=== PATIENT | female | born 1970 | race Asian ===

== ENCOUNTER 2019-04-28 05:23 | Emergency (ER) | payer OTHER ==
[~2019-04-28] VITALS: Ht 152.4 cm; Wt 47.7 kg
[~2019-04-28 05:23] MED LIST: ONDA4TAB6 PO
[2019-04-28 06:34] LABS: CLARITY,URINE CLEAR (Clear); COLOR,URINE STRAW (Yellow); GLUCOSE, URINE NEGATIVE (Neg); KETONES,URINE >=80 mg/dl (Neg); LEUKOCYTE ESTERASE ,URINE NEGATIVE (Neg); NITRITES, URINE NEGATIVE (Neg); OCCULT BLOOD,URINE TRACE-INTACT (Neg); PH,URINE 7.5 (4.8-8.0); PROTEIN,URINE NEGATIVE (Neg)
[2019-04-28 06:35] LABS: URINE HCG NEGATIVE (NEG)
[2019-04-28] MEDS ORDERED: ondansetron/PF 4mg/2ml inj IV ONE ×2 (06:35→07:00)
[2019-04-28 06:37] LABS: BASOPHILS % (AUTO) 0.3 % (0-1); EOSINOPHILS % (AUTO) 0.1 % (0-6); HEMOGLOBIN 15.5 g/dl (12.0-16.0); LYMPHOCYTES # (AUTO) 0.8 X10'3 (1.1-4.8); LYMPHOCYTES % (AUTO) 17.3 % (21-51); MEAN CORPUSCULAR HEMOGLOBIN 31.1 PG (27.0-31.0); MEAN CORPUSCULAR HGB CONC 34.5 g/dL (33.0-36.5); MEAN CORPUSCULAR VOLUME 90.3 FL (78-98); MEAN PLATELET VOLUME 8.7 FL (7.4-10.4); MONOCYTES # (AUTO) 0.2 X10'3 (0-0.9); MONOCYTES % (AUTO) 5.4 % (2-12); NEUTROPHILS # (AUTO) 3.4 X10'3 (1.8-7.7); NEUTROPHILS % (AUTO) 76.9 % (42-75); PLATELET COUNT 131 X10'3 (140-440); RED BLOOD COUNT 4.99 X10'6 (4.20-5.60); WHITE BLOOD COUNT 4.4 X10'3 (4.5-11.0)
[2019-04-28 06:39] LABS: UA COLLECTION TYPE NON-SPECIFIED
[2019-04-28 06:40] LABS: BACTERIA,URINE FEW /HPF (Neg); MUCUS STRANDS FEW /LPF (Neg); RBC,URINE 0-2 /HPF (0-2); SQUAMOUS EPITHELIAL CELL,UR FEW /LPF (FEW); WBC,URINE 0-4 /HPF (0-4)
[2019-04-28 06:41] LABS: AMORPHOUS PHOSPHATES 1+
[2019-04-28 06:49] LABS: ALANINE AMINOTRANSFERASE 30 U/L (12-78); ALBUMIN 4.1 G/DL (3.4-5.0); ALBUMIN/GLOBULIN RATIO 1.1 (1.1-1.5); ALKALINE PHOSPHATASE 77 IU/L (46-116); ANION GAP 11 (8-16); ASPARTATE AMINO TRANSFERASE 35 U/L (10-37); BILIRUBIN,TOTAL 0.3 MG/DL (0.1-1.0); BLOOD UREA NITROGEN 7 MG/DL (7-18); BUN/CREATININE RATIO 12.1 (6.6-38.0); CALCIUM 9.1 MG/DL (8.5-10.1); CHLORIDE 102 MMOL/L (99-107); CREATININE 0.58 MG/DL (0.40-0.90); GLUCOSE 96 MG/DL (70-104); LIPASE 112 U/L (73-393); POTASSIUM 3.5 MMOL/L (3.5-5.1); SODIUM 141 MMOL/L (135-145); TOTAL CARBON DIOXIDE 28.1 MMOL/L (24-32); TOTAL PROTEIN 7.8 G/DL (6.4-8.2); eGFR > 90 ML/MIN
[2019-04-28] MEDS ORDERED: normal saline 1000ML IV soln IVB ONE (07:00)
[2019-04-28] MEDS: diatr meglu/diatrizoate 30ml oral sol.-(3 dose) bottle PO SCH ×3 (07:00→08:30)
[2019-04-28 07:15] LABS: AMYLASE 69 U/L (25-115)
[2019-04-28] MEDS ORDERED: oseltamivir phos 75mg capsule PO ONE (07:25)
[2019-04-28] MEDS: pantoprazole 40 MG vial IV ONE ×2 (07:31→08:01)
[2019-04-28] MEDS ORDERED: TAM75C PO (08:41)
[2019-04-28 09:28] VITALS: BP 11/72
== END 2019-04-28 09:15 | disposition home or self-care (01) ==
LOC: ER 05:24
DX: J11.1 Influenza due to unidentified influenza virus with other respiratory manifestations (principal); R11.2 Nausea with vomiting, unspecified; Z90.49 Acquired absence of other specified parts of digestive tract; Z79.899 Other long term (current) drug therapy
CPT/HCPCS: 36415; 80053; 81001; 81025; 82150; 83690; 85025; 87502; 87503; 96361; 96374; 96375; 96376; 99284; C9113; J2405; J7030